=== PATIENT | female | born 1965 | race Caucasian/White ===

== ENCOUNTER 2017-02-02 15:19 | Emergency (ER) | payer BC ==
[2017-02-02] MEDS ORDERED: ERYTHROMYCIN 0.5% OPHTHALMIC OINTMENT 3.5 GM TUBE OS ONE (15:21)
--- NOTE | 2017-02-02 15:21 | PDOC ---
History of Present Illness <Austin Hensley - Last Filed: 02/02/17 15:30> - General History Source: Patient Exam Limitations: No Limitations - History of Present Illness Initial Comments: 02/02/17 15:54 The patient is a 51 year old female, with a significant past medical history of GERD, who presents to the emergency department with left eye pain just prior to presentation. The patient wears bilateral corrective contact lenses and states that she was taking her contact lenses out this afternoon when the lens in her left eye ripped in half. The patient reports that half of the lens remained stuck in her left eye. The patient attempted to wash her eye out at home but was unsuccessful in removing it so she decided to visit the ED for further evaluation. The patients and son are at the bedside. Allergies: None reported. Past Surgical History: Appendectomy; Abdominal Surgery. Social History: Current everyday smoker (6 cigarettes/day). Occasional alcohol consumption. Denies drug use. Shoe Stainer: Dr. Solis <Zuleika Gill - Last Filed: 02/02/17 16:31> - General Chief Complaint: Foreign Body (FB) Stated Complaint: CONTACT LENS UNDER EYELID Time Seen by Provider: 02/02/17 15:21 Past History - Past Medical History GI Disorders: Yes (ACID REFLUX/GERD, SBO, HIATAL HERNIA) - Surgical History Abdominal Surgery: Yes (SURGICAL REPAIR OF NON ROTATION INTESTINE) Appendectomy: Yes - Immunization History Td Vaccination: No Immunization Up to Date: Yes - Psycho/Social/Smoking Cessation Hx Anxiety: No Suicidal Ideation: No Smoking Status: Yes Smoking History: Current every day smoker Have you smoked in the past 12 months: Yes Number of Cigarettes Smoked Daily: 6 'Breaking Loose' booklet given: 09/11/12 Hx Alcohol Use: Yes Drug/Substance Use Hx: No Substance Use Type: Alcohol Hx Substance Use Treatment: No <Austin Hensley - Last Filed: 02/02/17 15:30> <Zuleika Gill - Last Filed: 02/02/17 16:31> - Past Medical History Allergies/Adverse Reactions: Allergies Allergy/AdvReac Type Severity Reaction Status Date / Time No Known Allergies Allergy Verified 02/02/17 15:24 Home Medications: Ambulatory Orders Beta-Carotene(A) W-C and E/Min [Ocuvite (Nf) -] 1 tab PO HS 03/20/14 Dexlansoprazole [Dexilant -] 60 mg PO HS 03/20/14 Erythromycin 0.5% Eye Ointment [Erythromycin 0.5% Eye Ointment -] 1 applic OS 5XD #1 tube 02/02/17 Naproxen [Naprosyn] 500 mg PO BID PRN #20 tablet 02/02/17 Review of Systems - Review of Systems Able to Perform ROS?: Yes Comments:: 02/02/17 15:42 CONSTITUTIONAL: Absent: fever, no chills, no fatigue EYES: Present: +Left eye pain ENT: Absent: ear pain, no sore throat CARDIOVASCULAR: Absent: chest pain, no palpitations RESPIRATORY: Absent: cough, no SOB GI: Absent: abdominal pain, no nausea, no vomiting, no constipation, no diarrhea GENITOURINARY: Absent: dysuria, no frequency, no hematuria MUSCULOSKELETAL: Absent: back pain, no arthralgia, no myalgia SKIN: Absent: rash NEURO: Absent: headache <Zuleika Gill - Last Filed: 02/02/17 16:31> *Physical Exam - Physical Exam Comments: 02/02/17 16:30 GENERAL: Well-appearing, well-nourished. No apparent distress. HEENT: Normocephalic. Left eye, there is a small corneal abrasion at the 12 o clock position, just at the border of the iris and pupil. PERRL, EOM intact. CARDIOVASCULAR: Regular rate and rhythm. Normal S1, S2. PULMONARY: Clear to auscultation bilaterally. ABDOMEN: Soft, non-distended, non-tender. EXTREMITIES: Normal ROM in all four extremities. No gross deformities. SKIN: Warm, dry. No rash. NEUROLOGICAL: No focal neurological deficits. <Zuleika Gill - Last Filed: 02/02/17 16:31> Medical Decision Making - Medical Decision Making 02/02/17 15:26 Using two fine cotton swabs lubricated with erythromycin eye ointment, following the administration of 2 drops of tetracaine, I was able to remove the remaining half of the contact lens Floor seen examination following removal did not show any retained foreign body but did show a very small corneal abrasion at approximately 12:00, just at the border of the iris and the pupil She is now pain-free Visual acuity unimpaired Clinical impression: Corneal foreign body, status post removal I discussed the physical exam findings, ancillary test results and final diagnoses with the patient. I answered all of the patient's questions. The patient was satisfied with the care received and felt comfortable with the discharge plan and treatment plan. The patient will call their primary care physician within 24 hours to arrange follow-up and will return to the Emergency Department with any new, persistent or worsening symptoms. A portion of this note was documented by scribe services under my direction. I have reviewed the details of the note, within reason, and agree with the documentation with the following case summary and management plan written by me. 02/02/17 15:31 <Austin Hensley - Last Filed: 02/02/17 15:30> *DC/Admit/Observation/Transfer <Austin Hensely - Last Filed: 02/02/17 15:30> - Attestations Scribe Attestion: 02/02/17 15:22 Documentation prepared by Zuleika Gill, acting as special forces medical sergeant for Austin Hensley MD. <Zuleika Gill - Last Filed: 02/02/17 16:31> Diagnosis at time of Disposition: Corneal abrasion - Discharge Dispostion Disposition: HOME Condition at time of disposition: Improved - Prescriptions Prescriptions: Erythromycin 0.5% Eye Ointment [Erythromycin 0.5% Eye Ointment -] 1 applic OS 5XD #1 tube Naproxen [Naprosyn] 500 mg PO BID PRN #20 tablet PRN Reason: Pain - Referrals Referrals: Ruel Puentes MD [Primary Care Provider] - Jonnathan Solis MD [Staff Physician] - - Patient Instructions Printed Discharge Instructions: DI for Corneal Abrasion Additional Instructions: Do not wear contact lenses again until told it is safe to do so by her ladies underwear operator. Return to the emergency department immediately with ANY new, persistent or worsening symptoms. You MUST call and follow up with your doctor tomorrow. Please make sure your doctor reviews the results of your emergency department evaluation.
[2017-02-02] MEDS ORDERED: FLUORESCEIN NA 1 EA STRIP ONE (15:26)
[2017-02-02 15:31] VITALS: BP 142/79; PULSE 78; TEMP 98.5; BMI 32.9
== END 2017-02-02 15:40 | disposition home or self-care (01) ==
LOC: FER 15:19
DX: H18.822 Corneal disorder due to contact lens, left eye (principal); K21.9 Gastro-esophageal reflux disease without esophagitis; F17.210 Nicotine dependence, cigarettes, uncomplicated
CPT/HCPCS: 99281-25

== ENCOUNTER 2017-12-18 16:11 | Emergency (ER) | payer BC ==
[2017-12-18 16:19] VITALS: BMI 34.0
[2017-12-18 16:24] VITALS: BP 109/73; PULSE 83; TEMP 98.4
--- NOTE | 2017-12-18 16:41 | PDOC ---
History of Present Illness - History of Present Illness Initial Comments: 12/18/17 16:38 52 yo F with no significant who p/w left distal pinky pain and swelling. Patient reports 1-2 weeks of worsening left pinky pain, warmth, and swelling. Denies trauma to finger. Patient right hand dominant. states that she had manicure last week, but reports symptoms prior to manicure. Patient believes that she has "ingrown nail." Has not attempted OTC symptom relief. Denies h/o similar symptoms. Has noted noticed any discharge, bleeding, or foreign body implantation. Denies F/C, N/V, CP, SOB, abdominal pain, diarrhea, constipation, urinary complaints, weakness, lightheadedness, sensory changes PMHx: as noted above. Denies h/o DM. ROS: as noted above SHx: Tobacco use 1/4 PPD. Denies IVDA. <Jackson Culp - Last Filed: 12/18/17 17:15> <Oc Gautam - Last Filed: 12/25/17 18:39> - General Chief Complaint: Pain Stated Complaint: LEFT PINKY PAIN Time Seen by Provider: 12/18/17 16:28 Past History - Past Medical History COPD: No GI Disorders: Yes (ACID REFLUX/GERD, SBO, HIATAL HERNIA) - Surgical History Abdominal Surgery: Yes (SURGICAL REPAIR OF NON ROTATION INTESTINE) Appendectomy: Yes - Immunization History Td Vaccination: No Immunization Up to Date: Yes - Suicide/Smoking/Psychosocial Hx Smoking Status: Yes Smoking History: Current every day smoker Have you smoked in the past 12 months: Yes Number of Cigarettes Smoked Daily: 4 Information on smoking cessation initiated: Yes 'Breaking Loose' booklet given: 12/18/17 Hx Alcohol Use: No Drug/Substance Use Hx: No Substance Use Type: None Hx Substance Use Treatment: No <Jackson Culp - Last Filed: 12/18/17 17:15> <Oc Gautam - Last Filed: 12/25/17 18:39> - Past Medical History Allergies/Adverse Reactions: Allergies Allergy/AdvReac Type Severity Reaction Status Date / Time No Known Allergies Allergy Verified 12/18/17 16:12 Home Medications: Ambulatory Orders Amoxicillin/Potassium Clav [Augmentin 875-125 Tablet] 1 each PO BID 7 Days #14 tablet MDD 2 tab 12/18/17 Review of Systems - Review of Systems Comments:: 12/18/17 16:38 GENERAL/CONSTITUTIONAL: No fever or chills. No weakness. HEAD, EYES, EARS, NOSE AND THROAT: No change in vision. No ear pain or discharge. No sore throat. CARDIOVASCULAR: No chest pain or shortness of breath RESPIRATORY: No cough, wheezing, or hemoptysis. GASTROINTESTINAL: No nausea, vomiting, diarrhea or constipation. GENITOURINARY: No dysuria, frequency, or change in urination. MUSCULOSKELETAL: Left pinky swelling. No joint or muscle swelling or pain. No neck or back pain. SKIN: No rash NEUROLOGIC: No headache, vertigo, loss of consciousness, or change in strength/ sensation. ENDOCRINE: No increased thirst. No abnormal weight change HEMATOLOGIC/LYMPHATIC: No anemia, easy bleeding, or history of blood clots. ALLERGIC/IMMUNOLOGIC: No hives or skin allergy. <Jackson Culp - Last Filed: 12/18/17 17:15> *Physical Exam - Vital Signs Last Vital Signs Temp Pulse Resp BP Pulse Ox 98.4 F 83 18 109/73 99 12/18/17 16:12 12/18/17 16:12 12/18/17 16:12 12/18/17 16:12 12/18/17 16:12 - Physical Exam Comments: 12/18/17 16:38 GENERAL: Awake, alert, and fully oriented, in no acute distress HEAD: No signs of trauma, normocephalic, atraumatic EYES: PERRLA, EOMI, sclera anicteric, conjunctiva clear ENT: Hearing grossly normal, nares patent, oropharynx clear without exudates. Moist mucosa NECK: Normal ROM, supple, no lymphadenopathy, JVD, or masses LUNGS: No distress, speaks full sentences, clear to auscultation bilaterally HEART: Regular rate and rhythm, normal S1 and S2, no murmurs, rubs or gallops, peripheral pulses normal and equal bilaterally. EXTREMITIES :Normal inspection, Normal range of motion, no edema. No clubbing or cyanosis. Left hand: Left distal fifth phalanx blanching erythema, warmth, and ttp at DIP , extending into lateral nail fold. Absent fluctuance, drainage, discharge, bleeding, ecchymosis, or bony deformity. Normal active and passive ROM of phalanx. SKIN: Warm, Dry, normal turgor, no rashes or lesions noted <Jackson Culp - Last Filed: 12/18/17 17:15> - Vital Signs Last Vital Signs Temp Pulse Resp BP Pulse Ox 98.4 F 83 18 109/73 99 12/18/17 16:12 12/18/17 16:12 12/18/17 16:12 12/18/17 16:12 12/18/17 16:12 <Oc Gautam S - Last Filed: 12/25/17 18:39> Medical Decision Making - Medical Decision Making 12/18/17 17:09 52 yo F with no significant who p/w left fifth phalanx/DIP erythema, warmth, and tenderness. VSS, AF, A&Ox3. No recent trauma. Extremity is neurovascularly intact. Absent foreign body. [id number] most likely d/t paronychia of involved finger. No evidence of deep space infection, skin abscess, cellultiis of hand, or closed hand injury. Patient non toxic appearing and without evidence of immunocompromise. Currently not endorsing pain. ED Course: Sent Augmentin 875 mg PO BID to pharmacy. Patient advised to apply warm compress to infected digit and f/u with PMD. Stable for d/c with return precautions. <Jackson Culp - Last Filed: 12/18/17 17:15> *DC/Admit/Observation/Transfer - Discharge Dispostion Decision to Admit order: No - Attestations Physician Attestion: 12/18/17 16:39 I attest to the information provided in this note. <Jackson Culp - Last Filed: 12/18/17 17:15> <Oc Gautam - Last Filed: 12/25/17 18:39> Diagnosis at time of Disposition: Paronychia of finger of left hand - Discharge Dispostion Disposition: HOME Condition at time of disposition: Stable - Prescriptions Prescriptions: Amoxicillin/Potassium Clav [Augmentin 875-125 Tablet] 1 each PO BID 7 Days #14 tablet MDD 2 tab - Patient Instructions Printed Discharge Instructions: DI for Paronychia Additional Instructions: Please return to the emergency department with any new or worsening symptoms or concerns. Please follow up with your primary care physician within 72 hours. Please take Augmentin two times a day for 7 days. Soak affected finger in warm water daily. Attending Attestation - Resident Resident Name: Jackson Culp - ED Attending Attestation I have performed the following: I have examined & evaluated the patient, The case was reviewed & discussed with the resident, I agree w/resident's findings & plan, Exceptions are as noted <Oc Gautam S - Last Filed: 12/25/17 18:39>
--- NOTE | 2017-12-25 10:36 | PDOC ---
Attending Attestation - Resident Resident Name: Jackson Culp - ED Attending Attestation I have performed the following: I have examined & evaluated the patient, The case was reviewed & discussed with the resident, I agree w/resident's findings & plan, Exceptions are as noted - HPI HPI: swelling, tenderness around the nailbed for more than one week 12/25/17 10:33 - Physicial Exam PE: redness, mild to moderate tenderness around the fingernail 12/25/17 10:33 - Medical Decision Making The lesion does not seem to necesitate drainage at this point Atbc will be given and further follow up for surgical care 12/25/17 10:35
== END 2017-12-18 16:47 | disposition home or self-care (01) ==
LOC: FER 16:11
DX: L03.012 Cellulitis of left finger (principal); F17.210 Nicotine dependence, cigarettes, uncomplicated; K21.9 Gastro-esophageal reflux disease without esophagitis
CPT/HCPCS: 99282-25

== ENCOUNTER 2018-03-11 15:20 | Observation (INO) | payer BC ==
[2018-03-11 15:27] VITALS: BMI 34.0
--- NOTE | 2018-03-11 15:30 | PDOC ---
Rapid Medical Evaluation Chief Complaint: PICC Line Insertion Time Seen by Provider: 03/11/18 15:28 Medical Evaluation: Allergies Allergy/AdvReac Type Severity Reaction Status Date / Time No Known Allergies Allergy Verified 03/11/18 15:24 Vital Signs Temp Pulse Resp BP Pulse Ox 99.0 F 112 H 20 131/77 95 03/11/18 15:24 03/11/18 15:24 03/11/18 15:24 03/11/18 15:24 03/11/18 15:24 03/11/18 15:28 Pt c/o: here for picc line insertion foer iv abx for left hand osteo, no complaints pt on brief exam: left 5th digit eythematous, VSS pt ordered for: none pt to proceed to the ED Discharge Disposition - Diagnosis Encounter for central line placement - Referrals - Patient Instructions - Post Discharge Activity
[2018-03-11] MEDS ORDERED: SODIUM CHLORIDE 1,000 ML IV STA (15:44)
--- NOTE | 2018-03-11 15:58 | PDOC ---
Attending Attestation - Resident Resident Name: CamachoBharathi - ED Attending Attestation I have performed the following: I have examined & evaluated the patient, The case was reviewed & discussed with the resident, I agree w/resident's findings & plan, Exceptions are as noted - HPI HPI: 03/11/18 18:34 Ms Hall is a 52 yo F who presents for PICC line insertion for long course of abx She was recently diagnosed by MRI as having left 5th digit DIP osteomyelitis Pt is unclear how this occured Pain began several weeks ago She was seen several times, evaluated via Xray which was negative She is now s/p 2 MRIs which confirm diagnosis - Physicial Exam PE: 03/11/18 15:58 GENERAL: The patient is in no acute distress. HEAD: Normal with no signs of trauma. LUNGS: Breath sounds equal, clear to auscultation bilaterally. No wheezes, and no crackles. HEART:Regular rate and rhythm, normal S1 and S2 without murmur, rub or gallop. ABDOMEN: Soft, nontender EXTREMITIES: Normal range of motion, No erythema. (+) left pinkie DIP swollen and tender to palpation NEUROLOGICAL: Cranial nerves II through XII grossly intact. Normal speech. No focal neurological deficits. MUSCULOSKELETAL: Left pinkie DIP tender to palpation SKIN: Warm, Dry, no erythema, no lesions noted 03/11/18 18:35 - Medical Decision Making Twelve-lead EKG was performed and reviewed by me. There is normal sinus rhythm with a normal rate. The axis is normal. The intervals are normal. There are no ST or T wave abnormalities. Impression: Normal twelve-lead EKG 03/11/18 18:36 Osteomyelitis of the left 5th pinkie Will need PICC line Clinical Impression: Osteomyelitis, initial presentation 03/11/18 18:39
[2018-03-11] MEDS ORDERED: CEFTRIAXONE 2 GM-D5W BAG 2 GM/50 ML BAG IVPB ONE (16:13)
--- NOTE | 2018-03-11 16:23 | PDOC ---
History of Present Illness - General Chief Complaint: PICC Line Insertion Stated Complaint: PCP SENT FOR ADMIT Time Seen by Provider: 03/11/18 15:28 History Source: Patient - History of Present Illness Initial Comments: 03/11/18 17:36 52F with no chronic illnesses sent to the ED by Dr. Mead, Infectious disease, for PICC line insertion for the treatment of osteomyelitis of the left fifth finger. Patient complain of persistent pain in the fifth finger under the distal phalanx for the past 3 month. After getting multiple xrays and 2 MRIs she was told to go the ER by Dr. Mead a week ago. Spoke to Dr. Mead who asked for the patient to be admitted and started on Ceftriaxone with Dr. Arnold for surgery. Past History - Past Medical History Allergies/Adverse Reactions: Allergies Allergy/AdvReac Type Severity Reaction Status Date / Time No Known Allergies Allergy Verified 03/11/18 15:24 Home Medications: Ambulatory Orders Amoxicillin/Potassium Clav [Augmentin 875-125 Tablet] 1 each PO BID 7 Days #14 tablet MDD 2 tab 12/18/17 COPD: No GI Disorders: Yes (ACID REFLUX/GERD, SBO, HIATAL HERNIA) - Surgical History Abdominal Surgery: Yes (SURGICAL REPAIR OF NON ROTATION INTESTINE) Appendectomy: Yes - Immunization History Td Vaccination: No Immunization Up to Date: Yes - Suicide/Smoking/Psychosocial Hx Smoking Status: Yes Smoking History: Current every day smoker Have you smoked in the past 12 months: Yes Number of Cigarettes Smoked Daily: 20 Information on smoking cessation initiated: No 'Breaking Loose' booklet given: 12/18/17 Hx Alcohol Use: No Drug/Substance Use Hx: No Substance Use Type: None Hx Substance Use Treatment: No Review of Systems - Review of Systems Able to Perform ROS?: Yes Is the patient limited Azeri proficient: No Constitutional: No: Symptoms Reported HEENTM: No: Symptoms Reported Respiratory: No: Symptoms reported Cardiac (ROS): No: Symptoms Reported ABD/GI: No: Symptoms Reported : No: Symptoms Reported Musculoskeletal: No: Symptoms Reported Integumentary: Yes: See HPI Neurological: No: Symptoms reported All Other Systems: Reviewed and Negative *Physical Exam - Vital Signs Last Vital Signs Temp Pulse Resp BP Pulse Ox 99.0 F 112 H 20 131/77 95 03/11/18 15:24 03/11/18 15:24 03/11/18 15:24 03/11/18 15:24 03/11/18 15:24 - Physical Exam General Appearance: Yes: Nourished, Appropriately Dressed. No: Apparent Distress HEENT: positive: VICKY, Normal ENT Inspection Respiratory/Chest: positive: Lungs Clear, Normal Breath Sounds. negative: Chest Tender, Respiratory Distress Cardiovascular: positive: Regular Rhythm, Tachycardia Gastrointestinal/Abdominal: positive: Normal Bowel Sounds, Flat, Soft. negative : Tender Musculoskeletal: positive: Normal Inspection. negative: CVA Tenderness Extremity: positive: Normal Capillary Refill, Normal Inspection, Normal Range of Motion Integumentary: positive: Normal Color, Dry, Warm Neurologic: positive: Fully Oriented, Alert, Normal Mood/Affect, Normal Response ED Treatment Course - LABORATORY CBC & Chemistry Diagram: 03/11/18 16:18 03/11/18 16:18 - RADIOLOGY Radiology Studies Ordered: Category Date Time Status CHEST X-RAY PORTABLE* [RAD] Stat Radiology 03/11/18 15:44 Ordered Medical Decision Making - Medical Decision Making 03/11/18 17:45 Repeat Xray, Presurgical labs, all WNL. Admitted to Dr. Rodriguez. *DC/Admit/Observation/Transfer Diagnosis at time of Disposition: Encounter for central line placement - Discharge Dispostion Decision to Admit order: Yes - Referrals Referrals: Adolph Lambert MD [Primary Care Provider] - - Patient Instructions - Post Discharge Activity
[2018-03-11] MEDS ORDERED: CEFTRIAXONE 2 GM/100 ML BAG IVPB ONE (16:26)
[2018-03-11 16:35] LABS: BASO % 0.7 % (0-2.0); EOS % 0.9 % (0-4.5); HEMATOCRIT 42.9 % (32.4-45.2); HEMOGLOBIN 14.8 GM/dL (10.7-15.3); LYMPH % 27.6 % (8-40); MCH 32.4 pg (25.7-33.7); MCHC 34.4 g/dl (32.0-36.0); MEAN CELL VOLUME 94.1 fl (80-96); MEAN PLT VOLUME 9.2 fl (7.5-11.1); NEUT % 63.8 % (42.8-82.8); PLATELET COUNT 242 K/MM3 (134-434); RBC 4.56 M/mm3 (3.60-5.2); RDW 13.3 % (11.6-15.6); WHITE BLOOD COUNT 10.2 K/mm3 (4.0-10.0)
[2018-03-11 16:42] LABS: INR 0.98 (0.83-1.09); PROTHROMBIN TIME (PATIENT) 11.1 SEC (9.7-13.0)
[2018-03-11 16:45] LABS: ACTIVATED PTT 30.8 SECONDS (25.2-36.5)
--- NOTE | 2018-03-11 16:46 | CONSULT ---
Consult Consult Specialty:: Hand and microsurgery Referred by:: Doug LEVIN - ED Reason for Consultation:: left small finger osteomyelitis - History of Present Illness Chief Complaint: left small finger swelling History of Present Illness: 52yo RHD female PMH obese presents to the ED sent in by Dr. Mead, Infectious disease, for PICC line insertion for the treatment of osteomyelitis of the left fifth finger. This started several months ago, she is unaware of any trauma to the area. She complains of persistent pain in the fifth finger under the distal phalanx. After getting multiple x-rays and 2 MRI that show worsening inflammation (marrow edema) in the distal and middle phalanx. 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 We were asked to assess. - History Source History Provided By: Patient, Medical Record Limitations to Obtaining History: No Limitations - Past Medical History Rheumatology: No: Gout, Rheumatoid Arthritis - Alcohol/Substance Use Hx Alcohol Use: No - Smoking History Smoking history: Current every day smoker Have you smoked in the past 12 months: Yes Aproximately how many cigarettes per day: 20 - Social History ADL: Independent Place of : [facility] History of Recent Travel: No Home Medications - Allergies Allergies/Adverse Reactions: Allergies Allergy/AdvReac Type Severity Reaction Status Date / Time No Known Allergies Allergy Verified 03/11/18 15:24 Review of Systems - Review of Systems Constitutional: denies: Chills, Fever Eyes: denies: Blurred Vision, Recent Change in Vision HENT: denies: Difficult Swallowing, Throat Pain Neck: denies: Swollen Glands, Tenderness Cardiovascular: denies: Chest Pain, Palpitations Respiratory: denies: Cough, SOB Genitourinary: denies: Dysuria, Flank Pain, Frequency Integumentary: reports: Erythema (left small finger DIP joint) Neurological: denies: Seizure, Syncope Endocrine: denies: Unexplained Weight Gain, Unexplained Weight Loss Hematology/Lymphatic: denies: Easily Bruised, Excessive Bleeding Psychiatric: denies: Anxiety, Depression Physical Exam Vital Signs: Vital Signs Temperature 99.0 F 03/11/18 15:24 Pulse Rate 112 H 03/11/18 15:24 Respiratory Rate 20 03/11/18 15:24 Blood Pressure 131/77 03/11/18 15:24 O2 Sat by Pulse Oximetry (%) 95 03/11/18 15:24 Constitutional: Yes: Well Nourished, No Distress, Calm Eyes: Yes: Conjunctiva Clear, EOM Intact HENT: Yes: Atraumatic, Normocephalic Neck: Yes: Supple, Trachea Midline Cardiovascular: Yes: Regular Rate and Rhythm, S1, S2 Respiratory: Yes: Regular, CTA Bilaterally Gastrointestinal: Yes: Normal Bowel Sounds, Soft. No: Tenderness ...Rectal Exam: Yes: Deferred Renal/: No: CVA Tenderness - Left, CVA Tenderness - Right Extremities: Yes: Deformity (Left small finger DIP joint swelling.). No: Cool, Cyanosis Integumentary: No: Jaundice Neurological: Yes: Alert, Oriented Psychiatric: Yes: Alert, Oriented Labs: CBC, BMP 03/11/18 16:18 Imaging - Results X-ray: Report Reviewed, Image Reviewed MRI: Report Reviewed, Image Reviewed (Marrow edema) Problem List - Problems (1) Osteomyelitis Assessment/Plan: 52yo RHD with left small finger inflammatory Continue to monitor clinically IV antibiotics per ID f/u in 4 weeks for possible bone biopsy if not improved will follow Thank you for the opportunity to participate in the care of this patient. Code(s): M86.9 - OSTEOMYELITIS, UNSPECIFIED Qualifiers: Osteomyelitis type: other chronic Osteomyelitis location: hand Laterality : left Qualified Code(s): M86.642 - Other chronic osteomyelitis, left hand (2) Inflammation of joint of finger of left hand Code(s): M19.042 - PRIMARY OSTEOARTHRITIS, LEFT HAND (3) Gastritis Code(s): K29.70 - GASTRITIS, UNSPECIFIED, WITHOUT BLEEDING Qualifiers: Gastritis type: unspecified gastritis Chronicity: chronic Gastritis bleeding: without bleeding Qualified Code(s): K29.50 - Unspecified chronic gastritis without bleeding (4) Low back strain Code(s): S39.012A - STRAIN OF MUSCLE, FASCIA AND TENDON OF LOWER BACK, INIT Qualifiers: Encounter type: subsequent encounter Qualified Code(s): S39.012D - Strain of muscle, fascia and tendon of lower back, subsequent encounter
[2018-03-11 16:54] LABS: ALBUMIN 4.2 g/dl (3.4-5.0); ALK PHOS 67 U/L (45-117); ANION GAP 12 (8-16); BILIRUBIN,TOTAL 0.9 mg/dL (0.2-1.0); BLOOD UREA NITROGEN 13 mg/dL (7-18); CALCIUM 9.8 mg/dL (8.5-10.1); CHLORIDE 105 mmol/L (98-107); CO2 26 mmol/L (21-32); CREATININE 0.7 mg/dL (0.55-1.02); GLUCOSE,RANDOM 101 mg/dL (74-106); SGPT/ALT 28 U/L (12-78); SODIUM 143 mmol/L (136-145); TOT PROT 7.7 g/dl (6.4-8.2)
[2018-03-11 16:56] LABS: POTASSIUM 4.5 mmol/L (3.5-5.1); SGOT/AST 27 U/L (15-37)
[2018-03-11 17:12] LABS: URINE APPEARANCE CLEAR; URINE BILIRUBIN NEGATIVE (<2.0 mg/dL); URINE COLOR YELLOW; URINE GLUCOSE (UA) NEGATIVE (NEGATIVE); URINE KETONE TRACE (NEGATIVE); URINE LEUK ESTERASE NEGATIVE (NEGATIVE); URINE NITRITE NEGATIVE (NEGATIVE); URINE PROTEIN NEGATIVE (NEGATIVE); URINE UROBILINOGEN NEGATIVE mg/dL (0.2-1.0)
--- NOTE | 2018-03-11 21:07 | HP ---
Admitting History and Physical - Primary Care Physician PCP: Chidi Rodriguez - Admission History of Present Illness: Ms Hall is a 52 yo F who presents for PICC line insertion for long course of abx She was recently diagnosed by MRI as having left 5th digit DIP osteomyelitis. Pain began several weeks ago She was seen several times, evaluated via Xray which was negative She is now s/p 2 MRIs which confirm diagnosis - Smoking History Smoking history: Current every day smoker Have you smoked in the past 12 months: Yes Aproximately how many cigarettes per day: 20 - Alcohol/Substance Use Hx Alcohol Use: No Home Medications - Allergies Allergies/Adverse Reactions: Allergies Allergy/AdvReac Type Severity Reaction Status Date / Time No Known Allergies Allergy Verified 03/11/18 15:24 Physical Examination Vital Signs: Vital Signs Temperature 99.0 F 03/11/18 15:24 Pulse Rate 112 H 03/11/18 15:24 Respiratory Rate 20 03/11/18 15:24 Blood Pressure 131/77 03/11/18 15:24 O2 Sat by Pulse Oximetry (%) 95 03/11/18 15:24 Constitutional: Yes: No Distress HENT: Yes: Atraumatic Neck: Yes: Supple Cardiovascular: Yes: Regular Rate and Rhythm Respiratory: Yes: CTA Bilaterally Gastrointestinal: Yes: Normal Bowel Sounds Extremities: Yes: Other (left fifth finger swollen and red) Neurological: Yes: Alert Labs: CBC, BMP 03/11/18 16:18 03/11/18 16:18 Problem List - Problems (1) Encounter for central line placement Code(s): Z45.2 - ENCOUNTER FOR ADJUSTMENT AND MANAGEMENT OF VAD (2) Osteomyelitis Assessment/Plan: left fifth finger for iv abx and Code(s): M86.9 - OSTEOMYELITIS, UNSPECIFIED Qualifiers: Osteomyelitis type: other chronic Osteomyelitis location: hand Laterality : left Qualified Code(s): M86.642 - Other chronic osteomyelitis, left hand Assessment/Plan Laboratory Tests 03/11/18 03/11/18 03/11/18 16:18 16:18 16:18 WBC 10.2 H RBC 4.56 Hgb 14.8 Hct 42.9 MCV 94.1 MCH 32.4 MCHC 34.4 RDW 13.3 Plt Count 242 MPV 9.2 Absolute Neuts (auto) 6.5 Neutrophils % 63.8 Lymphocytes % 27.6 Monocytes % 7.0 Eosinophils % 0.9 Basophils % 0.7 Nucleated RBC % 0 PT with INR 11.10 INR 0.98 PTT (Actin FS) 30.8 Sodium 143 Potassium 4.5 Chloride 105 Carbon Dioxide 26 Anion Gap 12 BUN 13 Creatinine 0.7 Creat Clearance w eGFR > 60 Random Glucose 101 Lactic Acid Calcium 9.8 Total Bilirubin 0.9 AST 27 ALT 28 Alkaline Phosphatase 67 Troponin I Total Protein 7.7 Albumin 4.2 Urine Color Urine Appearance Urine pH Ur Specific [place] Urine Protein Urine Glucose (UA) Urine Ketones Urine Blood Urine Nitrite Urine Bilirubin Urine Urobilinogen Ur Leukocyte Esterase Urine HCG, Qual 03/11/18 03/11/18 03/11/18 16:18 16:18 16:30 WBC RBC Hgb Hct MCV MCH MCHC RDW Plt Count MPV Absolute Neuts (auto) Neutrophils % Lymphocytes % Monocytes % Eosinophils % Basophils % Nucleated RBC % PT with INR INR PTT (Actin FS) Sodium Potassium Chloride Carbon Dioxide Anion Gap BUN Creatinine Creat Clearance w eGFR Random Glucose Lactic Acid 0.8 Calcium Total Bilirubin AST ALT Alkaline Phosphatase Troponin I < 0.02 Total Protein Albumin Urine Color Yellow Urine Appearance Clear Urine pH 5.0 Ur Specific [place] 1.026 Urine Protein Negative Urine Glucose (UA) Negative Urine Ketones Trace H Urine Blood Negative Urine Nitrite Negative Urine Bilirubin Negative Urine Urobilinogen Negative Ur Leukocyte Esterase Negative Urine HCG, Qual 03/11/18 16:30 WBC RBC Hgb Hct MCV MCH MCHC RDW Plt Count MPV Absolute Neuts (auto) Neutrophils % Lymphocytes % Monocytes % Eosinophils % Basophils % Nucleated RBC % PT with INR INR PTT (Actin FS) Sodium Potassium Chloride Carbon Dioxide Anion Gap BUN Creatinine Creat Clearance w eGFR Random Glucose Lactic Acid Calcium Total Bilirubin AST ALT Alkaline Phosphatase Troponin I Total Protein Albumin Urine Color Urine Appearance Urine pH Ur Specific [place] Urine Protein Urine Glucose (UA) Urine Ketones Urine Blood Urine Nitrite Urine Bilirubin Urine Urobilinogen Ur Leukocyte Esterase Urine HCG, Qual Negative Active Medications Generic Name Dose Route Start Last Admin Trade Name Freq PRN Reason Stop Dose Admin Acetaminophen 650 mg 03/11/18 21:08 Tylenol - PO Q6H PRN FEVER IV Flush 8 ml 03/11/18 23:19 Picc Line Flush IVPUSH PRN PRN Protocol Ceftriaxone Sodium 2 gm/ 100 mls @ 100 mls/hr 03/12/18 11:46 Dextrose IVPB DAILY [facility] Protocol
[2018-03-11] MEDS ORDERED: ACETAMINOPHEN 325 MG TABLET (FP) PO PRN (21:08)
[2018-03-11] MEDS ORDERED: PICC LINE 8 ML FLUSH PROTOCOL IVPUSH PRN (23:19)
[2018-03-12 08:14] VITALS: PULSE 60
[2018-03-12] MEDS ORDERED: CEFTRIAXONE 2 GM-D5W BAG 2 GM/50 ML BAG IVPB SCH (10:30)
[2018-03-12] MEDS ORDERED: CEFTRIAXONE 2 GM/100 ML BAG IVPB ONE (10:37)
--- NOTE | 2018-03-12 10:43 | CON.ID ---
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 patient does not know if she suffered any trauma which is highly likely.her finger was swollen .patient went to the [facility] and was evaluated and an mri was done which showed patient had developed bone marrow edema. patient then did not do anything but her sy,ptoms did not improve and about a week back came to see me with the complaints of pain and stills swelling of the finger. noticed some redness of the finger that time then it was found that the patient has had these going on for more than 3 months We decided to repeat the mri and found that the edema of the finger had worsened and i spoke to the radiologist who saw the mri and he mentioned that this could be osteo I spoke to the patient and explained in detail the chances of this could be due to infection are quite high depending on the line of her work patient it seems She also routinely applies artificial nails currently patient is also doing well - History Source History Provided By: Patient Limitations to Obtaining History: No Limitations - Alcohol/Substance Use Hx Alcohol Use: No - Smoking History Smoking history: Current every day smoker Have you smoked in the past 12 months: Yes Aproximately how many cigarettes per day: 20 Home Medications - Allergies Allergies/Adverse Reactions: Allergies Allergy/AdvReac Type Severity Reaction Status Date / Time No Known Allergies Allergy Verified 03/11/18 15:24 Review of Systems - Review of Systems Constitutional: reports: No Symptoms Eyes: reports: No Symptoms HENT: reports: No Symptoms Neck: reports: No Symptoms Cardiovascular: reports: No Symptoms Respiratory: reports: No Symptoms Gastrointestinal: reports: No Symptoms Genitourinary: reports: No Symptoms Musculoskeletal: reports: Joint Pain, Other Integumentary: reports: No Symptoms Neurological: reports: No Symptoms Endocrine: reports: No Symptoms Hematology/Lymphatic: reports: No Symptoms Psychiatric: reports: No Symptoms Physical Exam Vital Signs: Vital Signs Temperature 98.6 F 03/12/18 08:14 Pulse Rate 60 03/12/18 08:14 Respiratory Rate 18 03/12/18 08:14 Blood Pressure 125/81 03/12/18 08:14 O2 Sat by Pulse Oximetry (%) 100 03/12/18 08:14 Constitutional: Yes: Well Nourished, Calm, Mild Distress Eyes: Yes: Conjunctiva Clear HENT: Yes: Atraumatic, Normocephalic Neck: Yes: Supple, Trachea Midline Cardiovascular: Yes: Regular Rate and Rhythm Respiratory: Yes: Regular, CTA Bilaterally Gastrointestinal: Yes: Normal Bowel Sounds, Soft Musculoskeletal: Yes: WNL Extremities: Yes: Other (pain and swelling of the little finger of he left hand) Neurological: Yes: Alert, Oriented Psychiatric: Yes: Alert, Oriented Labs: CBC, BMP 03/11/18 16:18 03/11/18 16:18 Imaging - Results MRI: Report Reviewed, Image Reviewed Assessment/Plan Problem List - Problems (1) Osteomyelitis Code(s): M86.9 - OSTEOMYELITIS, UNSPECIFIED Qualifiers: Osteomyelitis type: other chronic Osteomyelitis location: hand Laterality : left Qualified Code(s): M86.642 - Other chronic osteomyelitis, left hand (2) Inflammation of joint of finger of left hand Code(s): M19.042 - PRIMARY OSTEOARTHRITIS, LEFT HAND (3) Gastritis Code(s): K29.70 - GASTRITIS, UNSPECIFIED, WITHOUT BLEEDING Qualifiers: Gastritis type: unspecified gastritis Chronicity: chronic Gastritis bleeding: without bleeding Qualified Code(s): K29.50 - Unspecified chronic gastritis without bleeding (4) Low back strain Code(s): S39.012A - STRAIN OF MUSCLE, FASCIA AND TENDON OF LOWER BACK, INIT Qualifiers: Encounter type: subsequent encounter Qualified Code(s): S39.012D - Strain of muscle, fascia and tendon of lower back, subsequent encounter discussed in great detail with the patient and the plan which we made once treatment is over will repeat the mri plan continue ceftriaxone 2 gm daily for 4 weeks rest continue current mgmt
[2018-03-12] MEDS ORDERED: CEFTRIAXONE 2 GM in DEXTROSE 5%-WATER 100 ML IVPB SCH (11:46)
[2018-03-12 15:59] VITALS: BP 126/62; TEMP 98.2
--- NOTE | 2018-03-12 16:48 | EKG ---
Test Reason : Blood Pressure : / mmHG Vent. Rate : 082 BPM Atrial Rate : 082 BPM P-R Int : 124 ms QRS Dur : 088 ms QT Int : 394 ms P-R-T Axes : 075 048 044 degrees QTc Int : 460 ms NORMAL SINUS RHYTHM NORMAL ECG WHEN COMPARED WITH ECG OF 09-MAY-2004 11:15, NO SIGNIFICANT CHANGE WAS FOUND Confirmed by ARGENIS VALE MD ([id number]) on 03/12/2018 3:47:59 PM Referred By: Confirmed By:ARGENIS VALE MD
--- NOTE | 2018-03-12 18:09 | DS ---
Physical Examination Vital Signs: Vital Signs Temperature 98.2 F 03/12/18 15:57 Pulse Rate 60 03/12/18 15:57 Respiratory Rate 18 03/12/18 15:57 Blood Pressure 126/62 03/12/18 15:57 O2 Sat by Pulse Oximetry (%) 100 03/12/18 15:57 Constitutional: Yes: No Distress HENT: Yes: Atraumatic Neck: Yes: Supple Cardiovascular: Yes: Regular Rate and Rhythm Respiratory: Yes: CTA Bilaterally Gastrointestinal: Yes: Normal Bowel Sounds Extremities: Yes: Other (left 5 finger osteo) Neurological: Yes: Alert, Oriented Labs: CBC, BMP 03/11/18 16:18 03/11/18 16:18 Discharge Summary Reason For Visit: OSTEOMYELITIS OF FINGER OF LEFT HAND Current Active Problems Encounter for central line placement (Acute) Inflammation of joint of finger of left hand (Acute) Osteomyelitis (Acute) Condition: Good - Instructions Referrals: Adolph Lambert MD [Primary Care Provider] - Chidi Rodriguez MD [Staff Physician] - - Home Medications Comprehensive Discharge Medication List: [facility]
== END 2018-03-12 20:00 | disposition home or self-care (01) ==
LOC: JER 15:20 → UNDOADMOB 16:23 → JERBED 16:23 → INTOOBSV 16:23 → JERBED 21:08
PROVIDERS: ADMIT Internal Medicine; ATTEND Internal Medicine
PROC: 3E04329 Introduction of Other Anti-infective into Central Vein, Percutaneous Approach (ICD-10-PCS; principal; 2018-03-11)
PROC: 05HY33Z Insertion of Infusion Device into Upper Vein, Percutaneous Approach (ICD-10-PCS; 2018-03-11)
DX: Z45.2 Encounter for adjustment and management of vascular access device (principal); M86.142 Other acute osteomyelitis, left hand; F17.210 Nicotine dependence, cigarettes, uncomplicated; E66.9 Obesity, unspecified; Z68.34 Body mass index [BMI] 34.0-34.9, adult; M19.042 Primary osteoarthritis, left hand; K29.70 Gastritis, unspecified, without bleeding; S39.012D Strain of muscle, fascia and tendon of lower back, subsequent encounter; X58.XXXD Exposure to other specified factors, subsequent encounter
CPT/HCPCS: 36415; 36569; 71045-TC-FY; 73140-TC-LT-FY; 80053; 81003; 83605; 84484; 84703; 85025; 85610; 85730; 87040; 87086; 93005; 93010; 99283-25; C1751; G0378; J7030

== ENCOUNTER 2020-06-14 08:08 | Emergency (ER) | payer BC ==
[2020-06-14 08:19] VITALS: BP 132/84; PULSE 78; TEMP 98.5; BMI 34.9
== END 2020-06-14 09:04 | disposition home or self-care (01) ==
LOC: FER 08:08
DX: S10.96XA Insect bite of unspecified part of neck, initial encounter (principal); W57.XXXA Bitten or stung by nonvenomous insect and other nonvenomous arthropods, initial encounter
CPT/HCPCS: 36415; 86618; 99283-25

== ENCOUNTER 2021-11-17 15:08 | Emergency (ER) | payer BC ==
[2021-11-17 15:28] VITALS: BP 139/77; PULSE 80; TEMP 97.9; BMI 40.4
[2021-11-17] MEDS ORDERED: ACETAMINOPHEN 325 MG TABLET (FP) ONE (15:37)
== END 2021-11-17 18:19 | disposition home or self-care (01) ==
LOC: FER 15:08
DX: M25.561 Pain in right knee (principal)
CPT/HCPCS: 73562-TC-RT-FY; 93971-TC; 99284-25